=== PATIENT | female | born 1970 | race Hispanic/Latino ===

== ENCOUNTER 2019-06-09 18:31 | Emergency (ER) | payer MEDICAID ==
--- NOTE | 2019-06-09 18:36 | Emergency Department Report ---
Blank Doc - Documentation Documentation: This is a 49-year-old female that presents with abscess in the vaginal area This initial assessment/diagnostic orders/clinical plan/treatment(s) is/are subject to change based on patient's health status, clinical progression and re- assessment by fellow clinical providers in the ED. Further treatment and workup at subsequent clinical providers discretion. Patient/guardians urged not to elope from the ED as their condition may be serious if not clinically assessed and managed. Initial orders include: 1- Patient sent to [facility] for further evaluation and treatment
[2019-06-09] MEDS ORDERED: NORCO 5/325 PO ONE (21:30)
[2019-06-09] MEDS ORDERED: XYLOCAINE 1% 20 mL INFILTRATI NR (21:45)
--- NOTE | 2019-06-09 22:41 | Emergency Department Report ---
Abscess Boil HPI - HPI Chief Complaint: Skin/Abscess/Foreign Body Stated Complaint: BOIL IN PRIVATE Time Seen by Provider: 06/09/19 18:35 Severity: Moderate History: Yes Pain, Yes Purulent Drainage, No Fever, No Numbness, No Foreign Body, No Previous History, No Insect Bite HPI: This is a 49-year-old female presents to ED complaining of the red, swelling pain to the evening by border region for the past 3-4 days. Patient states his got bigger since 4 days ago. She denies any drainage from the area. She denies fevers/chills/nausea /vomiting Home Medications: Home Medications Medication Instructions Recorded Confirmed Last Taken Cyclobenzaprine [Flexeril 10 MG 10 mg PO QHS 09/16/18 09/16/18 Unknown TAB] Estradiol 1 mg PO DAILY 09/16/18 09/16/18 Unknown Furosemide [Lasix] 20 mg PO DAILY 09/16/18 09/16/18 Unknown Haloperidol 10 mg PO QHS 09/16/18 09/16/18 Unknown Meloxicam 15 mg PO DAILY 09/16/18 09/16/18 Unknown Omeprazole 20 mg PO DAILY 09/16/18 09/16/18 Unknown Potassium Chloride 10 meq PO QDAY 09/16/18 09/16/18 Unknown medroxyPROGESTERone ACETATE 2.5 mg PO DAILY 09/16/18 09/16/18 Unknown [Provera] traMADol [Ultram] 50 mg PO DAILY 09/16/18 09/16/18 Unknown Previous Rx's Medication Instructions Recorded Last Taken Type Cyclobenzaprine [Flexeril] 10 mg PO TID PRN #30 tablet 09/17/18 Unknown Rx Menthol/Camphor [[place] 1 applicatio TP TID #1 tube 09/17/18 Unknown Rx Ointment] Clindamycin [Clindamycin CAP] 300 mg PO Q8H #21 cap 06/09/19 Unknown Rx Naproxen [Naprosyn TAB] 500 mg PO BID PRN #30 tablet 06/09/19 Unknown Rx Allergies/Adverse Reactions: Allergies Allergy/AdvReac Type Severity Reaction Status Date / Time aspirin Allergy Unknown Verified 09/16/18 21:48 diphenhydramine Allergy Unknown Verified 09/16/18 21:48 [From Benadryl] Penicillins Allergy Unknown Verified 09/16/18 21:48 ED Review of Systems ROS: Stated complaint: BOIL IN PRIVATE Other details as noted in HPI Comment: All other systems reviewed and negative ED Past Medical Hx - Past Medical History Hx Arthritis: (RA) Hx Psychiatric Treatment: Yes (schizophrenic,bipolar) Additional medical history: abdnormal liver function. fluid overload with BLE edema - Surgical History Additional Surgical History: right great toe, left hand carpel tunnel, - Social History Smoking Status: Current Every Day Smoker Substance Use Type: None - Medications Home Medications: Home Medications Medication Instructions Recorded Confirmed Last Taken Type Cyclobenzaprine [Flexeril 10 MG 10 mg PO QHS 09/16/18 09/16/18 Unknown History TAB] Estradiol 1 mg PO DAILY 09/16/18 09/16/18 Unknown History Furosemide [Lasix] 20 mg PO DAILY 09/16/18 09/16/18 Unknown History Haloperidol 10 mg PO QHS 09/16/18 09/16/18 Unknown History Meloxicam 15 mg PO DAILY 09/16/18 09/16/18 Unknown History Omeprazole 20 mg PO DAILY 09/16/18 09/16/18 Unknown History Potassium Chloride 10 meq PO QDAY 09/16/18 09/16/18 Unknown History medroxyPROGESTERone ACETATE 2.5 mg PO DAILY 09/16/18 09/16/18 Unknown History [Provera] traMADol [Ultram] 50 mg PO DAILY 09/16/18 09/16/18 Unknown History Cyclobenzaprine [Flexeril] 10 mg PO TID PRN #30 tablet 09/17/18 Unknown Rx Menthol/Camphor [[place] 1 applicatio TP TID #1 tube 09/17/18 Unknown Rx Ointment] Clindamycin [Clindamycin CAP] 300 mg PO Q8H #21 cap 06/09/19 Unknown Rx Naproxen [Naprosyn TAB] 500 mg PO BID PRN #30 tablet 06/09/19 Unknown Rx ED Abscess Boil Physical Exam - Exam General: Vital signs noted. No distress. Alert and acting appropriately. Size: >5 cm Exam: Yes Tenderness, Yes Fluctuance, Yes Surrounding Cellulites/Erythema, Yes Normal Circulation, No Lymphangitis, No Crepitation, No Heart Murmur, No Normal Neurologic Exam I & D Note - I & D Note I & D Note: Patient positioned appropriately, 10cc lidocaine without epinephrine was used as a local anesthetic. #11 blade scalpal used for single incision. Additional local anesthetic injected into surrounding viable tissue prior to blunt dissection of loculated adhesions. Copius drainage of pus. Wound packed with iodoform gauze. Procedure tolerated without complications. Wound dressed with sterile 4x4 guaze and paper tape. Pt tolerated procedure well. ED Course Vital Signs 06/09/19 18:35 Temperature 98.1 F Pulse Rate 97 H Respiratory 18 Rate Blood Pressure 128/87 O2 Sat by Pulse 100 Oximetry Critical care attestation.: If time is entered above; I have spent that time in minutes in the direct care of this critically ill patient, excluding procedure time. ED Medical Decision Making - Medical Decision Making This is a 49-year-old female who presents with right inner buttock abscess. Incision and drainage was performed. See I&D and note Discussed with patient to return to ED in 2-3 days for packing removal. Patient tolerated procedure well. Patient received pain medication ED. Vital signs are normal patient is in no acute distress. ED Disposition Clinical Impression: Abscess of right buttock Disposition: DC-01 TO HOME OR SELFCARE Is pt being admited?: No Does the pt Need Aspirin: No Condition: Stable Instructions: Abscess Incision and Drainage (ED), Abscess (ED) Additional Instructions: Make sure to follow up with the primary care physician as discussed. Take all your medications as you've been prescribed. If you have any worsening symptoms or develop new symptoms please return to ED immediately. Prescriptions: Clindamycin [Clindamycin CAP] 300 mg PO Q8H #21 cap Naproxen [Naprosyn TAB] 500 mg PO BID PRN #30 tablet PRN Reason: Pain , Severe (7-10) Referrals: EVANGELINA HUFF MD [Primary Care Provider] - 3-5 Days Forms: Accompanied Note, Work/School Release Form(ED) Time of Disposition: 23:03
[2019-06-09 23:16] VITALS: BP 115/79
== END 2019-06-09 23:17 | disposition home or self-care (01) ==
LOC: ED 18:31
DX: L02.31 Cutaneous abscess of buttock (principal); M19.90 Unspecified osteoarthritis, unspecified site; F31.9 Bipolar disorder, unspecified; F20.9 Schizophrenia, unspecified; F17.200 Nicotine dependence, unspecified, uncomplicated; Z79.899 Other long term (current) drug therapy; Z88.6 Allergy status to analgesic agent; Z88.0 Allergy status to penicillin; Z88.8 Allergy status to other drugs, medicaments and biological substances; Z98.890 Other specified postprocedural states
CPT/HCPCS: 99282